=== PATIENT | male | born 1950 | race Caucasian/White ===

== ENCOUNTER 2017-08-05 21:39 | Emergency (ER) | payer BC, OTHER ==
[2017-08-05 21:55] VITALS: BP 131/75
[2017-08-05] MEDS ORDERED: Acetaminophen TAB* 325 MG PO ONE (21:57)
--- NOTE | 2017-08-05 21:57 | UC ---
FLU HPI - HPI Summary HPI Summary: Pt c/o sudden onset of fever, chills, cough , nasal congestion generalized malaise and fatigue. Pt has history of RA and takes methotrexate. - History of Current Complaint Stated Complaint: WANG MO,FEVER Time Seen by Provider: 08/05/17 21:50 Hx Obtained From: Patient Onset/Duration: Sudden Onset, Lasting Days Severity Currently: Moderate Severity Initially: Mild Pain Intensity: 7 Associated Signs & Symptoms: Positive: Fever, Myalgia, Cough, Sore Throat Related Hx: Possible Flu/Infectious Exposure - Allergy/Home Medications Allergies/Adverse Reactions: Allergies Allergy/AdvReac Type Severity Reaction Status Date / Time No Known Allergies Allergy Verified 08/05/17 21:53 Home Medications: Home Medications Atorvastatin* [Lipitor 10 MG*] 10 mg PO DAILY 08/05/17 [History Confirmed ] Ywwsnknycirob-Hrkzxrwpzkc-To [Theraflu Cold & Cough 10-20-20 mg] 1 elida PO ONCE 08/05/17 [History Confirmed 08/05/17] PMH/Surg Hx/FS Hx/Imm Hx Previously Healthy: Yes - Rheumatoid arthritis - Surgical History Surgical History: Yes Surgery Procedure, Year, and Place: hernia repairs - Social History Occupation: Retired Lives: With Family Alcohol Use: Occasionally Substance Use Type: None Smoking Status (MU): Former Smoker Type: Cigarettes Amount Used/How Often: 3/4 ppd Length of Time of Smoking/Using Tobacco: 40 + yrs Have You Smoked in the Last Year: Yes When Did the Patient Quit Smoking/Using Tobacco: 2015 - Immunization History Most Recent Influenza Vaccination: not this season Vaccination Up to Date: No Review of Systems Constitutional: Fever, Chills, Fatigue Skin: Negative Eyes: Negative ENT: Sinus Congestion Respiratory: Cough Cardiovascular: Negative Gastrointestinal: Negative Genitourinary: Negative Motor: Negative Neurovascular: Negative Musculoskeletal: Myalgia Neurological: Headache Psychological: Negative Is Patient Immunocompromised?: No All Other Systems Reviewed And Are Negative: Yes Physical Exam Triage Information Reviewed: Yes Appearance: Ill-Appearing Vital Signs: Initial Vital Signs Temp 101.1 F 08/05/17 21:44 Pulse 104 08/05/17 21:44 Resp 18 08/05/17 21:44 BP 131/75 08/05/17 21:44 Pulse Ox 97 08/05/17 21:44 Vital Signs Reviewed: Yes Eye Exam: Normal ENT Exam: Other ENT: Positive: Nasal congestion Dental Exam: Normal Neck exam: Normal Respiratory Exam: Other Respiratory: Positive: Normal breath sounds Cardiovascular Exam: Normal Musculoskeletal Exam: Normal Neurological Exam: Normal Psychological Exam: Normal Skin Exam: Normal Diagnostics - Laboratory Diagnostic Studies Completed/Ordered: rapid influenza B positive Flu Course/Dx - Differential Dx/Diagnosis Differential Diagnosis/HQI/PQRI: Bronchitis, Influenza Provider Diagnoses: bronchitis. influenza B Discharge - Discharge Plan Condition: Stable Disposition: HOME Prescriptions: Azithromycin TAB* [Zithromax TAB (Z-ELIDA) 250 mg #6 tabs] 250 mg PO DAILY #4 tab Oseltamivir CAP* [Tamiflu CAP*] 75 mg PO Q12H #10 cap Patient Education Materials: Influenza (DC), Acute Bronchitis (ED) Referrals: Reji Crystal MD [Primary Care Provider] -
[2017-08-05] MEDS ORDERED: Benzonatate CAP* 100 MG PO ONE (22:11)
[2017-08-05] MEDS ORDERED: Azithromycin TAB* 250 MG PO ONE (22:11)
[2017-08-05] MEDS ORDERED: Oseltamivir CAP* 75 MG CAP PO ONE (22:19)
== END 2017-08-05 22:38 | disposition home or self-care (01) ==
LOC: UCCORT 21:39
DX: J40 Bronchitis, not specified as acute or chronic (principal); J11.1 Influenza due to unidentified influenza virus with other respiratory manifestations; M06.9 Rheumatoid arthritis, unspecified; Z87.891 Personal history of nicotine dependence
CPT/HCPCS: 87502; 99203; A9270-GY; G0463

== ENCOUNTER 2018-09-19 13:29 | Emergency (ER) | payer MEDICARE ==
[2018-09-19 13:59] VITALS: BP 130/78
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
== END 2018-09-19 16:29 | disposition home or self-care (01) ==
LOC: UCCORT 13:29
DX: R07.89 Other chest pain (principal); B02.9 Zoster without complications; F17.210 Nicotine dependence, cigarettes, uncomplicated
CPT/HCPCS: 99212; G0463

== ENCOUNTER 2018-10-08 12:05 | Emergency (ER) | payer MEDICARE ==
--- OUTSIDE RECORDS SUMMARY | 2018-10-08 12:19 | XMS REPORT | Continuity of Care Document ---
:1950 External Reference #:[id number] Author Name Leida Ledesma Care Team Providers Name Role Phone Reji Crystal MD Primary Care Physician Unavailable Payers Date Identification Numbers Payment Provider Subscriber Effective: 2017 Policy Number: [id number] Medicare Blue Ppo Chan Reyes Group Name: Medicare [address] [address] PayID: [id number] TAMMY [place]bar[place] [id number] Advance Directives Description No Information Available Problems Date Description Provider Status Onset: 03/24/2018 Rheumatoid arthritis Active Onset: 03/21/2018 Hyperlipidemia Active Family History Date Family Member(s) Observation Comments Father Cancer Father Diabetes Social History Type Date Description Comments Sex Unknown Marital Status Has been 1 time Lives With Spouse Occupation Full-Time Employment ETOH Use Currently consumes alcohol some weekends 2-3 Tobacco Use Start: Unknown End: Patient is a former smoker End Date;2015 Unknown formerly cigars,Quit smoking 11/2015 Smoking Status Reviewed: 02/28/17 Patient is a former smoker End Date;2015 formerly cigars,Quit smoking 11/2015 Allergies, Adverse Reactions, Alerts Description No Information Medications Medication Date Status Form Strength Qnty SIG Indications Ordering Provider Vitamin D 09/18/ Active Capsules [id number] 12caps 1 weekly Reji (Ergocalcifero 2019 Grant l) MD keren Atorvastatin 03/24/ Active Tablets 20mg 90tabs 1 by mouth E78.5 Reji Calcium 2018 every day Juanita veliz MD Clotrimazole/B 03/24/ Active Cream 1-0.05% 45unit use three B35.3 Reji etamethasone 2018 s times a Juanita Dipropionate day until MD keren clear at least 2 weeks Aspirin 02/19/ Active Tablets DR 81mg 90tabs 1 by mouth Reji 2017 every day Juanita veliz MD Prednisone 02/28/ Active Tablets 10mg 1 by mouth M05.40 Reji 2016 every day Juanita veliz MD Folic Acid 01/07/ Active Tablets 1mg 30tabs 1 by mouth M05.40 Reji 2013 every day Juanita veliz MD Tylenol 8 Hour 01/07/ Active Tablets ER 650mg 180tab takes 2 as M05.40 Reji 2013 s needed Juanita veliz MD Omeprazole 01/07/ Active Capsules 20mg 180cap 1 twice a K21.[address] s day Juanita veliz MD Methotrexate / Active Tablets 2.5mg [place], 0000 Yung Wilks Hydrocodone-Ac / Active Tablets 5-325mg Alvarado, etaminophen 0000 Julito Bah MD Atorvastatin 11/09/ Hx Tablets 10mg 90tabs 1 by mouth E78.5 Reji Calcium 2015 - every Grant 03/24/ evening MD keren 2017 Naproxen 07/12/ Hx Tablets 500mg 60tabs 1 by mouth Reji 2014 - twice a Grant 07/14/ day MD keren 2016 Methotrexate 01/07/ Hx Tablets 2.5mg 6 tabs by M05.40 Reji 2013 - mouth Grant 02/28/ every MD keren 2016 weekly Prednisone 01/07/ Hx Tablets 10mg 714.0 Reji 2013 - Grant 07/14/ MD keren 2015 Medrol 06/18/ Hx TBPK 4mg 1units as Reji 2012 - directed Grant 01/07/ MD keren 2013 Advil 06/04/ Hx Tablets 200mg 3 bid prn 719.49 Reji 2012 - Grant 06/04/ MD keren 2012 Naproxen 06/04/ Hx Tablets 500mg 60tabs 1 po bid 719.49 Reji 2012 - Juanita 06/25/ MD keren 2012 No Active Unknown Medications 2012 - 2017 Famciclovir 11/23/ Hx Tablets 500mg 6tabs 1 po bid Chan Neil - Cameron 01/18/ Yung 2013 Immunizations CPT Code Status Date Vaccine Lot # [id number] Given 02/28/2017 Tdap - Tetanus/Diptheria/Acellular Pertussis 72989 Given 03/22/2014 Influenza Virus 3Yrs & Over 11678 Given 08/19/2006 Pneumonia Vaccine 87378 Given 08/19/2006 Tetanus And Diptheria (Td) For Adult Use Preservative Free 45192 Given 08/19/2006 Influenza Virus 3Yrs & Over Vital Signs Date Vital Result Comment 09/29/2018 8:04am Weight 225.00 lb BP Systolic 136 mmHg BP Diastolic 82 mmHg 03/24/2018 9:12am Height 70 inches Weight 218.00 lb Heart Rate 80 /min BP Systolic 128 mmHg BP Diastolic 74 mmHg Respiratory Rate 16 /min BMI (Body Mass Index) 31.3 kg/m2 10/13/2017 1:02pm Height 71.75 inches Weight 229.00 lb Heart Rate 92 /min BP Systolic 150 mmHg BP Diastolic 82 mmHg Respiratory Rate 16 /min BMI (Body Mass Index) 31.3 kg/m2 08/29/2017 8:05am Weight 227.00 lb BP Systolic 132 mmHg BP Diastolic 92 mmHg 02/28/2017 2:53pm Height 69.75 inches Weight 222.00 lb Heart Rate 76 /min BP Systolic 96 mmHg BP Diastolic 74 mmHg Respiratory Rate 16 /min Body Temperature 98.1 F BMI (Body Mass Index) 32.1 kg/m2 02/06/2016 9:08am Height 70 inches Weight 209.00 lb Heart Rate 60 /min BP Systolic 128 mmHg BP Diastolic 82 mmHg Respiratory Rate 16 /min Body Temperature 97.0 F BMI (Body Mass Index) 30.0 kg/m2 11/12/2015 8:14am Weight 202.00 lb BP Systolic 118 mmHg BP Diastolic 80 mmHg 07/14/2015 8:01am Weight 198.00 lb BP Systolic 130 mmHg BP Diastolic 80 mmHg 01/08/2015 8:12am Height 69.75 inches Weight 202.00 lb Heart Rate 76 /min BP Systolic 100 mmHg BP Diastolic 80 mmHg Respiratory Rate 16 /min Body Temperature 97.2 F BMI (Body Mass Index) 29.2 kg/m2 07/12/2014 8:14am Weight 201.00 lb 01/07/2014 9:49am Height 69.75 inches Weight 193.00 lb Heart Rate 72 /min BP Systolic 110 mmHg BP Diastolic 76 mmHg Respiratory Rate 16 /min Body Temperature 97.3 F BMI (Body Mass Index) 27.9 kg/m2 06/18/2013 12:09pm Weight 191.00 lb BP Systolic 130 mmHg BP Diastolic 90 mmHg 06/04/2013 11:53am Weight 190.00 lb BP Systolic 128 mmHg BP Diastolic 84 mmHg 05/28/2013 1:18pm Weight 195.00 lb BP Systolic 120 mmHg BP Diastolic 70 mmHg 01/01/2013 2:14pm Height 70 inches Weight 198.00 lb Heart Rate 80 /min BP Systolic 122 mmHg BP Diastolic 76 mmHg Respiratory Rate 16 /min Body Temperature 98.4 F BMI (Body Mass Index) 28.4 kg/m2 Results Test Date Facility Test Result H/L Range Note Laboratory test 10/17/2017 N2N/CCD Import Act Partial 31.2 s 23.4-35 1 finding Thrombo Time Anticoagulant Therapy? Unknown C-Reactive Protein,Cardiac 2.05 mg/L Sedimentation Rate 4 mm/hr 0-20 2 Basic Metabolic Panel 10/17/2017 N2N/CCD Import Anion Gap 5 mEq/L Low 8- 16 BUN 15 mg/dL 7-18 BUN/Creat 16.6 ratio Calcium 8.8 mg/dL 8.5-10.1 Carbon Dioxide 28 mmol/L 21-32 Chloride 110 mmol/L High 98-107 Creatinine 0.9 mg/dL 0.6-1.3 Glom Filtration Rate, Estimate >60 mL/min Glucose 101 mg/dL 74-106 If >60 mL/min 3 Potassium 4.1 mmol/L 3.5-5.1 Sodium 143 mmol/L 136-145 CBC 10/17/2017 N2N/CCD Import Anticoagulant Therapy? Unknown Hematocrit 46.3 % 38-48 Hemoglobin 15.7 gm/dL 12.8-17 Mean Cell Volume 95.5 fl 80-96 Mean Corpuscular HGB 32.4 pg 27-33 Mean Corpuscular HGB Conc 33.9 g/dL 31.7-36 Mean Platelet Volume 10.2 fL 6.6-10.6 Platelet Count 207 K/uL 155-360 Red Blood Count 4.85 M/uL 4.2-5.8 Red Cell Distri Width %CV 14.4 % 11.6-15.8 White Blood Count 5.2 K/uL 3.4-10.5 LDL Cholesterol Profile 10/17/2017 N2N/[facility] Import Cholesterol 165 mg/dL 4 HDL Cholesterol 68 mg/dL 5 LDL-Cholesterol 83 mg/dL 6 Triglycerides 70 mg/dL 7 Protime 10/17/2017 N2N/[facility] Import Anticoagulant Therapy? Unknown Inr 1.0 1 0.9-1.1 8 Protime 13.1 s 12-14.4 Laboratory test 08/05/2017 N2N/[facility] Import Influenza A Molecular Negative 9 finding Influenza B Molecular Positive Abnormal Laboratory test 11/29/2016 N2N/[facility] Import C-Reactive 5.59 mg/L 10 finding Protein,Cardiac Prostate Specific Antigen 0.61 ng/mL 11 Basic Metabolic Panel 11/29/2016 N2N/[facility] Import Anion Gap 5 mEq/L Low 8- 16 BUN 26 mg/dL High 7-18 BUN/Creat 28.8 ratio Calcium 8.9 mg/dL 8.5-10.1 Carbon Dioxide 27 mmol/L 21-32 Chloride 110 mmol/L High 98-107 Creatinine 0.9 mg/dL 0.6-1.3 Glom Filtration Rate, Estimate >60 mL/min Glucose 103 mg/dL 74-106 If >60 mL/min 12 Potassium 3.9 mmol/L 3.5-5.1 Sodium 142 mmol/L 136-145 CBC 11/29/2016 N2N/[facility] Import Hematocrit 47.0 % 38-48 Hemoglobin 15.8 gm/dL 12.8-17 Mean Cell Volume 95.3 fl 80-96 Mean Corpuscular HGB 32.0 pg 27-33 Mean Corpuscular HGB Conc 33.6 g/dL 31.7-36 Mean Platelet Volume 10.1 fL 6.6-10.6 Platelet Count 232 K/uL 150-400 Red Blood Count 4.93 M/uL 4.2-5.8 Red Cell Distri Width %CV 14.3 % 11.6-15.8 White Blood Count 6.1 K/uL 3.4-10.5 LDL Cholesterol Profile 11/29/2016 N2N/[facility] Import Cholesterol 175 mg/dL 13 HDL Cholesterol 56 mg/dL 14 LDL-Cholesterol 106 mg/dL 15 Triglycerides 66 mg/dL 16 LDL Cholesterol Profile 10/24/2015 N2N/[facility] Import Cholesterol 211 mg/dL High 17 HDL Cholesterol 46 mg/dL 18 LDL-Cholesterol 142 mg/dL 19 Triglycerides 114 mg/dL 20 LDL Cholesterol Profile 01/13/2015 N2N/[facility] Import Cholesterol 226 mg/dL 21 HDL Cholesterol 55 mg/dL 22 LDL-Cholesterol 157 mg/dL 23 Triglycerides 71 mg/dL 24 CBC 01/13/2015 N2N/CCD Import Hematocrit 48.4 % High 38-48 Hemoglobin 16.5 gm/dL 12.8-17 Mean Cell Volume 96.8 fl High 80-96 Mean Corpuscular HGB 33.0 pg 27-33 Mean Corpuscular HGB Conc 34.1 g/dL 31.7-36 Mean Platelet Volume 10.5 fL 6.6-10.6 Platelet Count 230 K/uL 150-400 Red Blood Count 5.00 M/uL 4.2-5.8 Red Cell Distri Width %CV 14.6 % 11.6-15.8 White Blood Count 6.2 K/uL 3.4-10.5 Basic Metabolic Panel 01/13/2015 N2N/CCD Import Anion Gap 4 mEq/L Low 8- 16 BUN 19 mg/dL High 7-18 BUN/Creat 21.1 ratio Calcium 8.8 mg/dL 8.5-10.1 Carbon Dioxide 27 mmol/L 21-32 Chloride 108 mmol/L High 98-107 Creatinine 0.9 mg/dL 0.6-1.3 Glom Filtration Rate, Estimate >60 mL/min Glucose 103 mg/dL 74-106 If >60 mL/min 25 Potassium 3.8 mmol/L 3.5-5.1 Sodium 139 mmol/L 136-145 Laboratory test 01/13/2015 N2N/CCD Import C-Reactive 2.18 mg/L finding Protein,Cardiac Homocyst(E)Ine, Plasma 13.6 umol/L 0-15 26 Prostate Specific Antigen 0.89 ng/mL 27 Laboratory test 09/13/2013 N2N/CCD Import Esophageal Biopsy See Note 28 finding Laboratory test 06/04/2013 N2N/CCD Import Anti-Dna Antibody <1 Iu/ml 0- 9 29 finding ([place]) Antichromatin Antibodies <0.2 0-0.9 SALES [employer] INSURANCE Antibody <0.2 0-0.9 Ra Latex Turbid. 27.7 IU/mL High 0-13.9 Rheumatoid Factor Screen Negative SM Antibody <0.2 0-0.9 Sjogrens Antibodies (SSB) <0.2 0-0.9 Sjogrens Antibodies (Ssa) <0.2 0-0.9 Lyme Igg & Igm By Western 06/04/2013 N2N/CCD Import Lyme AB Igg By Western . Blot Blot Lyme AB Igm By Western Blot . Lyme Igg WB Interpretation Negative 30 Lyme Igm WB Interpretation Negative 31 P18 AB Absent P23 AB Absent P23 AB Absent P28 AB Absent P30 AB Absent P39 AB Absent P39 AB Absent P41 AB Absent P41 AB Absent P45 AB Absent P58 AB Absent P66 AB Absent P93 AB Absent Laboratory test 05/28/2013 N2N/CCD Import C-Reactive 10.6 mg/L High 0- 4.9 finding Protein,Quant Sedimentation Rate 13 mm/hr 0-20 CBS W/Automated Diff 05/28/2013 N2N/CCD Import Bas% 0.7 % 0.1-1 Baso # 0.05 K/uL Low 0.1-0.2 Eo% 1.3 % 0-5 Eos # 0.09 K/uL 0-0.5 Hematocrit 44.8 % 38-48 Hemoglobin 14.9 gm/dL 12.8-17 Lymph # 1.67 K/uL 1.2-4 Lymph % 23.4 % 17-56 Mean Cell Volume 92.6 fl 80-96 Mean Corpuscular HGB 30.8 pg 27-33 Mean Corpuscular HGB Conc 33.3 g/dL 31.7-36 Mean Platelet Volume 9.9 fL 6.6-10.6 [place] # 0.46 K/uL 0-0.6 [place] % 6.5 % 0-10 Neut# 4.86 K/uL 1.8-7 Neut% 68.1 % 33-73 Platelet Count 294 K/uL 150-400 Red Blood Count 4.84 M/uL 4.2-5.8 Red Cell Distri Width %CV 13.9 % 11.6-15.8 Red Cell Distri Width SD 46.1 fl 36-51 White Blood Count 7.1 K/uL 3.4-10.5 Laboratory test 03/10/2013 N2N/CCD Import PSA (Centaur CP) 0.82 ng/mL 0- 4 32 finding PSA ([place]) 0.95 ng/mL 0-4 33 Comprehensive Metabolic Panel 03/10/2013 N2N/CCD Import Alb/Glob 0.8 ratio Albumin 3.4 g/dL Low 3.5-5 Alkaline Phosphatase 114 U/L 50-136 Anion Gap 12 mEq/L 8-16 BUN 17 mg/dL 5-23 BUN/Creat 17.0 ratio Bilirubin,Total 0.7 mg/dL 0.2-1.2 Calcium 8.8 mg/dL 8.5-10.1 Carbon Dioxide 27 mEq/L 18-29 Chloride 105 mmol/L 98-107 Creatinine 1.0 mg/dL 0.5-1.4 Globulin 4.2 g/dL 1.9-4.3 Glom Filtration Rate, Estimate >60 mL/min Glucose 96 mg/dL 76-115 If >60 mL/min 34 Potassium 4.0 mmol/L 3.5-5.1 SGPT/Alt 17 U/L Low 30-65 Sgot/Ast 11 U/L Low 16-40 Sodium 140 mmol/L 136-145 Total Protein 7.6 g/dL 6.3-8 LDL Cholesterol 03/10/2013 N2N/CCD Import Cholesterol 214 mg/dL High 120- 200 Profile HDL Cholesterol 53 mg/dL 29-83 LDL-Cholesterol 144 mg/dL 62-185 Triglycerides 87 mg/dL 16-231 1 Z01.818 E78.5 M05.40 2 Method: Sediplast Modified Westergren 3 Note: Persistent reduction for 3 months or more in an eGFR <60 mL/min/1.73 m2 defines CKD. Patients with eGFR values >/=60 mL/min/1.73 m2 may also have CKD if evidence of persistent proteinuria is present. The original MDRD equation for estimated GFR is not valid for patients less than 18 years of age. Additional information may be found at www.kdoqi.org. 4 Reference Guidelines*: Desirable: ........... < 200 mg/dL Borderline High: ..... 200-239 mg/dL High: ................ >=240 mg/dL * The National Cholesterol Education Program (NCEP) 5 Reference Guidelines*: Low HDL: ..... < 40 mg/dL Normal: ..... 40-60 mg/dL Desirable: ... > 60 mg/dL *The National Cholesterol Education Program(NCEP) 6 Reference Guidelines*: Optimal:........... <100 mg/dL Near Optimal....... 100-129 mg/dL Borderline High.... 130-159 mg/dL High............... 160-189 mg/dL Very High.......... >=190 mg/dL * Source: National Cholesterol Education Program (NCEP) 7 Reference Guidelines*: Normal: ............. < 150 mg/dL Borderline High: .... 150-199 mg/dL High: ............... 200-499 mg/dL Very High: .......... > 500 mg/dL * Source: National Cholesterol Education Program (NCEP) 8 THERAPEUTIC INR RANGE: 2.0 - 3.0 DVT, Pulmonary embolus, prophylaxis against venous thrombosis or systemic embolization in high risk patients. 2.5 - 3.5 Mechanical heart valves 9 Interpretive Naturalist: [id number] Z12.5,M05.40,E78.5,Z00.01 11 THIS ASSAY IS NOT INTENDED A CANCER SCREENING TEST The concentration of PSA in a given specimen, determined with assays from different manufacturers, can vary due to differences in assay methods and reagent specificity. Values obtained from different assay methods cannot be used interchangeably. Method: Siemens Face++ [place] Chemiluminescent immunoassay. 12 Note: Persistent reduction for 3 months or more in an eGFR <60 mL/min/1.73 m2 defines CKD. Patients with eGFR values >/=60 mL/min/1.73 m2 may also have CKD if evidence of persistent proteinuria is present. The original MDRD equation for estimated GFR is not valid for patients less than 18 years of age. Additional information may be found at www.kdoqi.org. 13 Reference Guidelines*: Desirable: ........... < 200 mg/dL Borderline High: ..... 200-239 mg/dL High: ................ >=240 mg/dL * The National Cholesterol Education Program (NCEP) 14 Reference Guidelines*: Low HDL: ..... < 40 mg/dL Normal: ..... 40-60 mg/dL Desirable: ... > 60 mg/dL *The National Cholesterol Education Program(NCEP) 15 Reference Guidelines*: Optimal:........... <100 mg/dL Near Optimal....... 100-129 mg/dL Borderline High.... 130-159 mg/dL High............... 160-189 mg/dL Very High.......... >=190 mg/dL * Source: National Cholesterol Education Program (NCEP) 16 Reference Guidelines*: Normal: ............. < 150 mg/dL Borderline High: .... 150-199 mg/dL High: ............... 200-499 mg/dL Very High: .......... > 500 mg/dL * Source: National Cholesterol Education Program (NCEP) 17 Reference Guidelines*: Desirable: ........... < 200 mg/dL Borderline High: ..... 200-239 mg/dL High: ................ >=240 mg/dL * The National Cholesterol Education Program (NCEP) 18 Reference Guidelines*: Low HDL: ..... < 40 mg/dL Normal: ..... 40-60 mg/dL Desirable: ... > 60 mg/dL *The National Cholesterol Education Program(NCEP) 19 Reference Guidelines*: Optimal:........... <100 mg/dL Near Optimal....... 100-129 mg/dL Borderline High.... 130-159 mg/dL High............... 160-189 mg/dL Very High.......... >=190 mg/dL * Source: National Cholesterol Education Program (NCEP) 20 Reference Guidelines*: Normal: ............. < 150 mg/dL Borderline High: .... 150-199 mg/dL High: ............... 200-499 mg/dL Very High: .......... > 500 mg/dL * Source: National Cholesterol Education Program (NCEP) 21 Reference Guidelines*: Desirable: ........... < 200 mg/dL Borderline High: ..... 200-239 mg/dL High: ................ >=240 mg/dL * The National Cholesterol Education Program (NCEP) 22 Reference Guidelines*: Low HDL: ..... < 40 mg/dL Normal: ..... 40-60 mg/dL Desirable: ... > 60 mg/dL *The National Cholesterol Education Program(NCEP) 23 Reference Guidelines*: Optimal:........... <100 mg/dL Near Optimal....... 100-129 mg/dL Borderline High.... 130-159 mg/dL High............... 160-189 mg/dL Very High.......... >=190 mg/dL * Source: National Cholesterol Education Program (NCEP) 24 Reference Guidelines*: Normal: ............. < 150 mg/dL Borderline High: .... 150-199 mg/dL High: ............... 200-499 mg/dL Very High: .......... > 500 mg/dL * Source: National Cholesterol Education Program (NCEP) 25 Note: Persistent reduction for 3 months or more in an eGFR <60 mL/min/1.73 m2 defines CKD. Patients with eGFR values >/=60 mL/min/1.73 m2 may also have CKD if evidence of persistent proteinuria is present. The original MDRD equation for estimated GFR is not valid for patients less than 18 years of age. Additional information may be found at www.kdoqi.org. 26 Performed at: RN - [facility] [address] [id number] Data Center Architect: Loly Del Toro MD, Phone: [phone] 27 THIS ASSAY IS NOT INTENDED A CANCER SCREENING TEST The concentration of PSA in a given specimen, determined with assays from different manufacturers, can vary due to differences in assay methods and reagent specificity. Values obtained from different assay methods cannot be used interchangeably. 28 OPERATION/PROCEDURE Colonoscopy with polypectomy DIAGNOSIS: PART 1: "TRANSVERSE COLON POLYP, BIOPSY": ADENOMATOUS COLONIC MUCOSA, FRAGMENTED WITH TUBULAR ARCHITECTURE. PART 2: "TRANSVERSE COLON POLYPS, SNARED": HYPERPLASTIC POLYPS, WITH HEALING CHANGES. PART 3: "SIGMOID COLON, POLYPECTOMY": TUBULAR ADENOMA. PART 4: "STOMACH BIOPSIES": REACTIVE GASTROPATHY. NO HELICOBACTER PYLORI ORGANISMS PRESENT. PART 5: "ESOPHAGEAL BIOPSY": SQUAMOUS MUCOSAL CHANGES SUPPORTIVE OF CHRONIC ESOPHAGITIS. HW/clf GROSS Part 1; "TRANSVERSE COLON POLYP, BIOPSY". The specimen is received in an appropriately labeled container. This contains six rounded mccatrhy colored pieces of soft tissue measuring up to 0.3 cm.; filtered and submitted in toto within a single cassette. Part 2; "TRANSVERSE POLYPS, SNARED". The specimen is received in an appropriately labeled container. This contains four rounded mccarthy-pink colored pieces of soft tissue measuring up to 0.6 cm.; filtered and submitted in toto within a single cassette. Part 3; "SIGMOID POLYP". The specimen is received in an appropriately labeled container. This contains one rounded red colored piece of soft tissue measuring up to 0.7 cm.; Sectioned and submitted in toto within a single cassette. GROSS (Continued) Part 4; "STOMACH BIOPSIES". The specimen is received in an appropriately labeled container. This contains two rounded mccarthy colored pieces of soft tissue measuring up to 0.4 cm.; filtered and submitted in toto within a single cassette. Part 5; "ESOPHAGEAL BIOPSIES". The specimen is received in an appropriately labeled container. This contains two rounded white-red colored pieces of soft tissue measuring up to 0.3 cm.; filtered and submitted in toto within a single cassette. HW/ clf MICROSCOPIC Parts 1,3: Sections reveal colonic mucosa lined by columnar cells with elongated and hyperchromatic nuclei. Part 2: Sections show congested and inflamed colonic mucosa lined by an increased number of goblet cells with smooth muscle ingrowth. The glands have a serrated, saw tooth appearance. The nuclei are bland, and basal. Part 4: Sections show glandular elongation, tortuosity, and hypercellularity of gastric pits, foveolar hyperplasia, and villiform transformation of the mucosa. The glands appear more angular than usual. Foveolar cells show mild mucin depletion and vacuolization. There is capillary congestion, vasodilatation and edema. Smooth muscle fibers extend high into the lamina propria. There are interstitial chronic inflammatory cells. There are no Helicobacter-type bacteria identified with Warthin- Starry staining. The controls are adequate. Part 5: Sections show squamous epithelium characterized by acanthosis, parakeratosis, mildly ectatic, elongated rete papillary vessels, without neutrophil exocytosis. Focally there are vascular proliferation suggestive of a healing ulcer. PRE OPERATIVE DIAGNOSIS Family history of colon cancer, heme (+) stools, GERD REVIEW CODE CODE: I Signed ELIZABETH HERNÁNDEZ MD [id number] TONY JIMÉNEZ MD 09/15/13 1121 29 Negative <5 Equivocal 5 - 9 Positive >9 30 Positive: 5 of the following Borrelia-specific bands: 18,23,28,30,39,41,45,58, 66, and 93. Negative: No bands or banding patterns which do not meet positive criteria. 31 Note: An equivocal or positive EIA result followed by a negative Western Blot result is considered NEGATIVE. An equivocal or positive EIA result followed by a positive Western Blot is considered POSITIVE by the CDC. Positive: 2 of the following bands: 23,39 or 41 Negative: No bands or banding patterns which do not meet positive criteria. Criteria for positivity are those recommended by CDC/ASTPHLD. p23=Osp C, e75=ssnapaxax Note: Sera from individuals with the following may cross react in the [place] Western Blot assays: other spirochetal diseases (periodontal disease, leptospirosis, relapsing fever, yaws, and pinta); connective autoimmune (Rheumatoid Arthritis and Systemic Lupus Erythematosus and also individuals with Antinuclear Antibody); other infections ([place] Spotted Fever; Barry-Soriano Virus, and Cytomegalovirus). Performed at: - [facility] [id number] Data Center Architect: Loly Del Toro MD, Phone: [phone] 32 Test PSA (Centaur CP) is provided in conjunction with the PSA ([place]) method to assist in establishing a new baseline for serially monitored patients. THIS ASSAY IS NOT INTENDED A CANCER SCREENING TEST 33 THIS ASSAY IS NOT INTENDED A CANCER SCREENING TEST The concentration of PSA in a given specimen, determined with assays from different manufacturers, can vary due to differences in assay methods and reagent specificity. Values obtained from different assay methods cannot be used interchangeably. 34 Note: Persistent reduction for 3 months or more in an eGFR <60 mL/min/1.73 m2 defines CKD. Patients with eGFR values >/=60 mL/min/1.73 m2 may also have CKD if evidence of persistent proteinuria is present. The original MDRD equation for estimated GFR is not valid for patients less than 18 years of age. Additional information may be found at www.kdoqi.org. Procedures Date Code Description Status 09/21/2018 40428349 Colonoscopy Completed 10/13/2017 35886 EKG Tracing & Interpretation Completed 02/06/2016 21944 Visual funct screen test, automated Completed 02/06/2016 60261 Pure Tone Hearing Test, Air Completed 11/12/2015 82858 EKG Tracing & Interpretation Completed 01/08/2015 12532 Screening Vision Test Completed 01/08/2015 58843 Pure Tone Hearing Test, Air Completed 07/12/2014 59456 Tympanometry Completed 01/07/2014 82295 Visual funct screen test, automated Completed 01/07/2014 78768 Pure Tone Hearing Test, Air Completed 12/22/2013 94854 Colonoscopy Flexible Diagnostic Completed 01/01/2013 74908 Visual funct screen test, automated Completed 01/01/2013 91930 Pure Tone-Air Condition Only Completed Encounters Type Date Location Provider Dx Diagnosis Office Visit 01/18/2013 Tato Barnes, 351.0 [place] Palsy 11:30a [facility]rolog[facility] Serv Of [facility] Analyst Office Visit 11/23/2012 Tato Barnes, 351.0 [place] Palsy 10:00a Neurologic Serv Of Yung [facility] Plan of Treatment Future Appointment(s):03/30/2019 8:15 am - Reji Crystal MD at [facility]09/29/2018 - Reji Crystal MDB02.9 Zoster without robrhinmfcrxmK04.5 Hyperlipidemia, prkxumqxtpjJ62.02 Carpal tunnel syndrome, left upper limbM23.201 Derangement of unspecified lateral meniscus due to old tearM06.9 Rheumatoid arthritis, unspecified
[2018-10-08 13:04] VITALS: BP 121/73
--- NOTE | 2018-10-08 13:11 | UC ---
UC General HPI - HPI Summary HPI Summary: PT C/O TENDER RED BUMPS TO BOTH ARMPITS SINCE YESTERDAY. NO FEVER OR HX MRSA. CHRONIC IMMUNE SUPPRESSION FOR HIS RA. RECENT SHINGLES ON R SIDE THAT ARE HEALING. - History of Current Complaint Chief Complaint: UCSkin Stated Complaint: SKIN CONCERN Time Seen by Provider: 10/08/18 13:04 Hx Obtained From: Patient Onset/Duration: Gradual Onset Timing: Constant Pain Intensity: 5 Associated Signs & Symptoms: Negative: Fever - Allergy/Home Medications Allergies/Adverse Reactions: Allergies Allergy/AdvReac Type Severity Reaction Status Date / Time No Known Allergies Allergy Verified 10/08/18 13:04 PMH/Surg Hx/FS Hx/Imm Hx - Additional Past Medical History Additional PMH: RA Endocrine History: Dyslipidemia GI/ History: Ulcer - Surgical History Surgical History: Yes Surgery Procedure, Year, and Place: hernia repairs; colon polyps; - Family History Known Family History: Positive: Hypertension, Diabetes - Social History Occupation: Employed Full-time Alcohol Use: Rare Substance Use Type: None Smoking Status (MU): Current Every Day Smoker Type: Cigars Amount Used/How Often: 2-3 cigars Length of Time of Smoking/Using Tobacco: 40 + yrs Have You Smoked in the Last Year: Yes When Did the Patient Quit Smoking/Using Tobacco: 2016 - Immunization History Most Recent Influenza Vaccination: not this season Vaccination Up to Date: No Review of Systems All Other Systems Reviewed And Are Negative: Yes Skin: Positive: Rash Physical Exam Triage Information Reviewed: Yes Appearance: Well-Appearing Vital Signs: Initial Vital Signs Temp 98.2 F 10/08/18 12:56 Pulse 82 10/08/18 12:56 Resp 16 10/08/18 12:56 BP 121/73 10/08/18 12:56 Pulse Ox 97 10/08/18 12:56 Vital Signs Reviewed: Yes Eyes: Positive: Conjunctiva Clear ENT: Positive: Pharynx normal, TMs normal. Negative: Nasal congestion, Nasal drainage Neck: Positive: Supple, Nontender, No Lymphadenopathy Respiratory: Positive: Lungs clear, Normal breath sounds Cardiovascular: Positive: RRR, No Murmur Abdomen Description: Positive: Nontender, No Organomegaly, Soft Bowel Sounds: Positive: Present Musculoskeletal: Positive: ROM Intact Neurological: Positive: Alert Skin Exam: Normal, Other - Mils scabbing on R trunk from healing shingles. Skin: Positive: Rashes - small red area to each axilla with underlying enlarged lymph nodes that are tender. there is no fluctuance. Lymp node exam: no cervical, epitroclear or inguinal adenopathy. no splenomegaly. Course/Dx - Differential Dx - Multi-Symptom Differential Diagnoses: Other - no abscess. no hx mrsa or exposure to mrsa. acutely enlarged-tender axillary nodes with mild overlying cellulitis. will tx with keflex and close f/u for recheck. pt to dispose of deodorant and avoid future use until skin/nodes clear. - Diagnoses Provider Diagnosis: Axillary adenopathy, Skin infection Discharge - Sign-Out/Discharge Documenting (check all that apply): Patient Departure All imaging exams completed and their final reports reviewed: No Studies - Discharge Plan Condition: Stable Disposition: HOME Prescriptions: Cephalexin CAP* [Keflex CAP*] 500 mg PO TID 10 Days #30 cap Patient Education Materials: Cellulitis (DC), Lymphadenopathy (ED) Referrals: Reji Crystal MD [Primary Care Provider] - 3 Days Additional Instructions: DISPOSE OF CURRENT DEODORANT STICK AND AVOID ANY ADDITIONAL USE OF DEODORANT UNTIL SKIN CLEARS - Billing Disposition and Condition Condition: STABLE Disposition: Home
== END 2018-10-08 13:21 | disposition home or self-care (01) ==
LOC: UCCORT 12:05
DX: R59.0 Localized enlarged lymph nodes (principal); L08.9 Local infection of the skin and subcutaneous tissue, unspecified; F17.210 Nicotine dependence, cigarettes, uncomplicated
CPT/HCPCS: 99212; G0463

== ENCOUNTER 2018-11-09 11:08 | Day surgery (SDC) | payer MEDICARE ==
[~2018-11-09 11:08] MED LIST: Buffered Lidocaine 1% SYRIN* 1 ML/SYRINGE INTRADERM ONE; Lactated Ringers 1000 ML Bag* 1,000 ML IV SCH; Sodium Citrate/Citric Acid* 15 ML UDC ONE; Sodium Citrate/Citric Acid* 15 ML UDC PO ONE
[2018-11-09] MEDS ORDERED: Lidocaine 2% PF * 5 ML VIAL ONE (12:49)
[2018-11-09] MEDS ORDERED: Propofol* 10 MG/ML 20 ML BTL ONE (12:49)
[2018-11-09] MEDS ORDERED: fentaNYL* 50 MCG/ML 2 ML VIAL (100 MCG VIAL) ONE (12:49)
[2018-11-09] MEDS ORDERED: Bupivacaine 0.25% SDV* 30 ML ONE (12:51)
[2018-11-09] MEDS ORDERED: Naloxone* 0.4 MG/ML 1 ML VIAL IV PRN (13:37)
[2018-11-09 14:10] VITALS: BP 128/78
--- NOTE | 2018-11-09 22:59 | OP ---
DATE OF OPERATION: 11/09/18 - [facility] DATE OF : 54 SURGEON: oY Frost MD DRY FOLDER CLOTH: ELÍAS Castrejon ANESTHESIOLOGIST: Dr. Lepe ANESTHESIA: General. PRE-OP DIAGNOSIS: Left carpal tunnel syndrome. POST-OP DIAGNOSIS: Left carpal tunnel syndrome. OPERATIVE PROCEDURE: Left endoscopic carpal tunnel release. INDICATIONS: Chan has carpal tunnel syndrome. We talked about treatment options. He wanted to proceed with carpal tunnel release. He understands the risks and benefits including the risk of nerve injury. ESTIMATED BLOOD LOSS: 2 mL. COMPLICATIONS: None. FINDINGS: See above and below. DESCRIPTION OF PROCEDURE: Chan was seen in the preoperative holding area. The correct side, site, and procedure were identified. We came back to the operating room. The arm was prepped and draped in the usual fashion. A time- out was performed. The arm was exsanguinated with the Esmarch and the tourniquet was inflated to 250 mmHg. I made a 1 cm transverse incision just ulnar to the palmaris longus tendon. Dissection was carried down through the subcutaneous tissue and the distal antebrachial fascia was split transversely, bluntly with the tenotomy scissors and then a 2-prong skin hook was placed. I then used the synovial stripper, followed by the dilators and then a Q-tip into the carpal tunnel to dry everything out. A MicroAire endoscopic carpal tunnel system was then introduced. When I had good visualization of the ligament, I went ahead and elevated the blade and released ligament from distal to proximal. Once I completed the release, I placed a Jo retractor and re-entered the carpal tunnel with MicroAire system. I confirmed under direct visualization that the entirety of the ligament was released. I then released the distal antebrachial fascia proximally with a tenotomy scissors. The wound was then irrigated out. The skin was closed with 4-0 nylon suture. Marcaine was infiltrated. Soft dressings were applied and he was taken to the recovery room in stable condition. [id number]/CPS #: [id number] MTDD
== END 2018-11-09 14:28 | disposition home or self-care (01) ==
LOC: OREAST 11:08
PROVIDERS: ATTEND Orthopaedic Surgery Hand Surgery
DX: G56.02 Carpal tunnel syndrome, left upper limb (principal); M06.9 Rheumatoid arthritis, unspecified; Z72.0 Tobacco use; E78.00 Pure hypercholesterolemia, unspecified; K21.9 Gastro-esophageal reflux disease without esophagitis; Z87.442 Personal history of urinary calculi
CPT/HCPCS: A9270-GY; J2704; J3010; J3490

== ENCOUNTER 2019-02-01 07:20 | Emergency (ER) | payer MEDICARE ==
[2019-02-01 07:34] VITALS: BP 145/72
--- NOTE | 2019-02-01 07:34 | UC ---
Throat Pain/Nasal Pee HPI - HPI Summary HPI Summary: 68 year old male with complaint of sore throat. Been present for 3 days. Non productive cough. Low grade fever of 100 at home. No sinus pressure or ear pressure. Not exposed to illness. Nothing improves symptoms. Swallowing worsens symptoms. Fevers like sand paper in the back of throat at times. - History of Current Complaint Stated Complaint: SORE THROAT,ACHY,FEVER Time Seen by Provider: 02/01/19 07:31 Hx Obtained From: Patient Onset/Duration: Gradual Onset Severity: Moderate Cough: Nonproductive - Allergies/Home Medications Allergies/Adverse Reactions: Allergies Allergy/AdvReac Type Severity Reaction Status Date / Time No Known Allergies Allergy Verified 02/01/19 07:34 PMH/Surg Hx/FS Hx/Imm Hx Previously Healthy: Yes Endocrine History: Dyslipidemia GI/ History: Gastroesophageal Reflux - Surgical History Surgical History: Yes Surgery Procedure, Year, and Place: hernia repairs; colon polyps;. right carpel tunnel release - Family History Known Family History: Positive: Hypertension, Diabetes - Social History Alcohol Use: None Substance Use Type: None Smoking Status (MU): Current Every Day Smoker Type: Cigars Amount Used/How Often: 2-3 cigars-,vapes Length of Time of Smoking/Using Tobacco: 40 + yrs Have You Smoked in the Last Year: Yes When Did the Patient Quit Smoking/Using Tobacco: 2016 - Immunization History Most Recent Influenza Vaccination: not this season Vaccination Up to Date: No Review of Systems All Other Systems Reviewed And Are Negative: Yes Constitutional: Positive: Fatigue ENT: Positive: Sore Throat, Sinus Congestion, Sinus Pain/Tenderness Respiratory: Positive: Cough Is Patient Immunocompromised?: Yes Physical Exam Triage Information Reviewed: Yes Appearance: Well-Appearing, No Pain Distress, Well-Nourished Vital Signs Reviewed: Yes Eye Exam: Normal ENT Exam: Normal ENT: Positive: Normal ENT inspection, Hearing grossly normal, Pharyngeal erythema, Nasal congestion, Nasal drainage, TMs normal. Negative: Tonsillar swelling, Tonsillar exudate Dental Exam: Normal Neck exam: Normal Neck: Positive: 1 Respiratory Exam: Normal Cardiovascular Exam: Normal Musculoskeletal Exam: Normal Neurological Exam: Normal Psychological Exam: Normal Skin Exam: Normal Throat Pain/Nasal Course/Dx - Course Course Of Treatment: Neg strep. No source of bacterial infection. Treat conservatively at this time. If Sx worsen RTO for further eval. Pt aware and agree to plan. - Differential Dx/Diagnosis Differential Diagnosis/HQI/PQRI: Laryngitis, Otitis Media, Pharyngitis, Sinusitis, Tonsillitis, URI Provider Diagnosis: Pharyngitis Discharge - Sign-Out/Discharge Documenting (check all that apply): Patient Departure All imaging exams completed and their final reports reviewed: No Studies - Discharge Plan Condition: Good Disposition: HOME Prescriptions: Magic Mouth Was-JM/MAAL/LIDO* 5 ml SWISH SPIT QID PRN #100 ml PRN Reason: Pain Patient Education Materials: Pharyngitis (ED) Referrals: Reji Crystal MD [Primary Care Provider] - 4 Days Additional Instructions: Today your strep testing was negative. - Billing Disposition and Condition Condition: GOOD Disposition: Home
== END 2019-02-01 08:19 | disposition home or self-care (01) ==
LOC: UCCORT 07:20
DX: J02.9 Acute pharyngitis, unspecified (principal); E78.5 Hyperlipidemia, unspecified; K21.9 Gastro-esophageal reflux disease without esophagitis; F17.210 Nicotine dependence, cigarettes, uncomplicated
CPT/HCPCS: 87651; 99212; G0463